=== PATIENT | female | born 1995 | race Caucasian/White ===

== ENCOUNTER 2022-08-10 12:39 | Emergency (ER) | payer OTHER, SELFPAY ==
--- NOTE | ~2022-08-10 | US_ITS ---
EXAMINATION: US PELVIS CLINICAL INFORMATION: Left lower quadrant/pelvic pain COMPARISON: None TECHNIQUE: Ultrasound of the pelvis is performed using both transabdominal and transvaginal transducers along with Doppler. Transvaginal imaging is performed due to inadequate visualization transabdominally. FINDINGS: Uterus: The uterus is anteverted and measures 7.8 x 2.3 x 4.3 cm. The double wall endometrial thickness is 0.4 mm. The uterus is smooth in contour and has normal myometrial echogenicity. No visible fibroid. A nabothian cyst is present in the cervix. Adnexa: Both ovaries are visualized and appear normal. There is normal color flow to the adnexa. There is no ovarian torsion. There is no pelvic ascites or fluid collection. Right ovary measures 3.4 x 1.8 x 1.6 cm. Left ovary measures 3.4 x 1.6 x 1.7 cm. US/US pelvic and transvaginal IMPRESSION: Normal study. A cause for the patient's left lower quadrant pain has not been found.
[2022-08-10 13:11] VITALS: BP 119/69; PULSE 91; RESP 16; TEMP 36.2; O2SAT 100; BMI 29.2
[2022-08-10 13:24] LABS: Appearance Urine Clear; Color Urine Yellow; Glucose Urine UA Negative (Negative); Leukocyte Esterase Urine Negative (Negative); Nitrite Urine Negative (Negative); Specific Gravity - Urine <= 1.005 (1.005-1.025); UPreg QC Valid YES; Urine Blood Negative (Negative); Urine Ketones Negative (Negative); Urine Pregnancy NEGATIVE (NEGATIVE); Urine Protein Negative (Neg-Trace)
[2022-08-10 15:00] LABS: MANUAL DIFF FLAG NO
[2022-08-10 15:02] LABS: Basophils Absolute Auto 0.1 X10*3/uL (0.0-0.2); Basophils Percent Auto 0.8 % (0-2); Eosinophils Absolute Auto 0.2 X10*3/uL (0.0-0.4); Eosinophils Percent Auto 2.2 % (0-4); Hemoglobin 12.8 g/dl (12.0-16.0); Imm Gran Abs Auto 0.02 X10*3/uL (0.00-0.03); Imm Gran Pct Auto 0.3 % (0.0-0.4); Lymphocytes Absolute Auto 1.8 X10*3/uL (1.2-4.9); Lymphocytes Percent Auto 24.6 % (20-40); Mean Corpuscular HGB Conc 32.8 g/dl (31.0-35.0); Mean Corpuscular Hemoglobin 29.5 pg (27.0-33.0); Mean Corpuscular Volume 89.9 fL (80.0-98.0); Mean Platelet Volume 10.8 fL (9.4-12.3); Monocytes Absolute Auto 0.6 X10*3/uL (0.1-1.2); Monocytes Percent Auto 7.7 % (2-11); Neutrophils Absolute Auto 4.7 x10*3/uL (2.0-8.3); Neutrophils Percent Auto 64.4 % (45-73); Platelet Count 276 X10*3/uL (160-400); Red Blood Count 4.34 X10*6/uL (4.20-5.50); Red Cell Distribution Width 13.3 % (11.0-16.0); White Blood Count 7.3 X10*3/uL (4.8-10.8)
[2022-08-10 15:20] LABS: Anion Gap 12 (12-20); Blood Urea Nitrogen 8 mg/dL (9-16); Calcium 9.9 mg/dL (8.4-10.2); Carbon Dioxide 26 mmol/L (22-29); Chloride 107 mmol/L (96-108); Creatinine Clr Calc Pharmacy 131.5; Estimated Glomerular Filt Rate > 60; Glucose Random 85 mg/dL (60-115); Potassium 4.1 mmol/L (3.3-5.1); Sodium 141 mmol/L (135-145)
--- NOTE | 2022-08-10 18:35 | ED_ITS ---
HPI - Female Genitourinary General Chief complaint: Urogenital-Female Stated complaint: L pelvic pain, burning feeling Time Seen by Provider: 08/10/22 18:32 Source: patient Mode of arrival: ambulatory Limitations: no limitations History of Present Illness HPI Narrative: Patient is a 27-year-old female presents to the emergency department for evaluation of left lower pelvic/groin pain. Onset 5 days ago just before her menstrual cycle. Additionally she is reporting vaginal itching and burning, reports a history of yeast infections with this does feel mildly different. She is currently menstruating, is not certain whether she is having any abnormal vaginal discharge. Denies urinary frequency/urgency/hesitancy. Denies constipation or diarrhea. Denies fevers, chills, nausea, vomiting, abdominal pain, flank pain, back pain. She does report a history of ovarian cyst, denies any complications with these in the past. Related Data Allergies Allergy/AdvReac Type Severity Reaction Status Date / Time No Known Allergies Allergy Verified 08/10/22 13:13 Review of Systems Review of Systems: Constitutional : No Weight loss, No Fever, No Chills ENT/Mouth :? No sore throat, No Rhinorrhea Eyes: No Swelling, No Redness Cardiovascular : No Chest Pain, No SOB, No Edema Respiratory : No Cough, No Sputum, No Wheezing Gastrointestinal : No Nausea, no Vomiting, no Diarrhea, no abdominal pain, No Hematochezia, No Melena Genitourinary : No Dysuria, No Urinary Frequency, No Hematuria, No Urgency. Positive pelvic pain. Positive vaginal itching/burning. Musculoskeletal : No joint pain, No Myalgias, No Joint Swelling Skin : No Skin Lesions, No rash Neuro : No Weakness, No Numbness, No Dizziness, No Headache Psych : No Anxiety/Panic, No Depression Heme/Lymph: No Bruising, No Lymphadenopathy Endocrine : No Polyuria, No Polydipsia Yes all other systems are reviewed and are negative [facility] Past Medical History Attestation statement: The following information was validated with the patient. Source: old records reviewed Social History Social History Advance Directives: No Advance Directives Information Provided: No Physical Exam Vital Signs: Vital Signs: Last Vital Signs Temp 97.1 F 08/10/22 13:11 Pulse 91 08/10/22 13:11 Resp 16 08/10/22 13:11 BP 119/69 08/10/22 13:11 Pulse Ox 100 08/10/22 13:11 O2 Del Method 08/10/22 13:11 BMI result Body Mass Index 29.2 Vital signs have been reviewed as normal and appeared to be correct. Blood pressure normal.? Heart rate normal.? Respiration rate normal. Temperature normal.? Oxygen saturation normal. Appearance: Alert.?Oriented to person, place and time. No acute distress.?N ormal affect. Eyes: Pupils equal, round and reactive to light.? ENT: Pharynx normal.?? Neck: Normal inspection.? Neck supple.?? CVS: Heart sounds normal. Normal heart rate and rhythm.? Pulses normal.?? Respiratory: No respiratory distress.? Lung sounds clear to auscultation bilaterally?? Abdomen: Soft and non-tender. Normoactive bowel sounds. Skin: Skin warm and dry.? Normal skin color.? Extremities: No lower extremity edema.? Neuro: Moves all extremities spontaneously. Sensation intact bilaterally. No focal neuro deficits. Ambulates with normal steady gait. Course Course Course Narrative: Patient is a 27-year-old female with a past medical history of ovarian cyst who presents emergency department for evaluation of left sided pelvic/groin pain in addition to vaginal itching/burning. She is currently menstruating. Reports a history of similar pain in the past, was found have ovarian cysts, and states she has had multiple yeast infections in the past. Upon examination she is overall well-appearing. Vital signs are stable. She is afebrile without tachycardia. Abdominal exam is benign. Declines internal pelvic examination. Labs obtained from triage reveal a normal CBC and normal BMP. Urinalysis shows no evidence of infection or microscopic hematuria. Urine test is nega tive. Denies possibility of sexually transmitted infections, however is open to receiving testing. Sent specimen for chlamydia and gonorrhea, as well as bacterial vaginosis panel. Will obtain ultrasound of the pelvic to evaluate for ovarian cyst, fibroid, free fluid within the pelvis. Abdominal examination is benign, does not appear consistent with appendicitis, diverticulitis, nephrolithiasis, pyelonephritis. Reevaluation(s) Reevaluation #1: Ultrasound is unremarkable, no cause for pain is visualized, no evidence ovarian cysts, no torsion, no pelvic fluid. Discussed these findings with patient. Patient declines prophylactic treatment for sexually transmitted infections, she has low suspicion for this. Offered treatment for yeast infection, she would like to wait for the results of testing. She states that she has experienced the symptoms for many years, and testing is always negative. She has tried over -the-counter yeast medications which typically make her symptoms worse the she does not want treatment at this time. Reviewed worrisome signs and symptoms to return back to emergency department for. Advised use of Tylenol, NSAID, ice/heat to the area, outpatient follow-up with her primary care provider/physical security specialist provider. Patient verbalized understanding. She was discharged home in stable condition. Time: 20:36 MDM - Female Genitourinary Medical Records Attestation: I reviewed the patient's medical records. Lab Data Attestation: I reviewed the patient's lab results. Result diagrams: 08/10/22 14:53 08/10/22 14:53 Labs: Lab Results 08/10/22 08/10/22 08/10/22 Range/Units 13:16 13:16 14:53 WBC 7.3 (4.8-10.8) X10*3/uL RBC 4.34 (4.20-5.50) X10*6/uL Hgb 12.8 (12.0-16.0) g/dl Hct 39.0 (37.0-47.0) % MCV 89.9 (80.0-98.0) fL MCH 29.5 (27.0-33.0) pg MCHC 32.8 (31.0-35.0) g/dl RDW 13.3 (11.0-16.0) % Plt Count 276 (160-400) X10*3/uL MPV 10.8 (9.4-12.3) fL Immature Gran % (Auto) 0.3 (0.0-0.4) % Neut % (Auto) 64.4 (45-73) % Lymph % (Auto) 24.6 (20-40) % Bourbon % (Auto) 7.7 (2-11) % Eos % (Auto) 2.2 (0-4) % Baso % (Auto) 0.8 (0-2) % Lymph # (Auto) 1.8 (1.2-4.9) X10*3/uL Bourbon # (Auto) 0.6 (0.1-1.2) X10*3/uL Eos # (Auto) 0.2 (0.0-0.4) X10*3/uL Baso # (Auto) 0.1 (0.0-0.2) X10*3/uL Abs Immat Gran (auto) 0.02 (0.00-0.03) X10*3/uL Absolute Neuts (auto) 4.7 (2.0-8.3) x10*3/uL Absolute Nucleated RBC 0.000 (0.0-0.012) X10*3/uL Nucleated RBC % (auto) 0.0 (0.0-0.2) /100WBC Sodium (135-145) mmol/L Potassium (3.3-5.1) mmol/L Chloride (96-108) mmol/L Carbon Dioxide (22-29) mmol/L Anion Gap (12-20) BUN (9-16) mg/dL Creatinine (0.5-1.4) mg/dL Estim Creat Clear Calc Estimated GFR Random Glucose (60-115) mg/dL Calcium (8.4-10.2) mg/dL Urine Color Yellow Urine Appearance Clear Urine pH 6.0 (5.0-9.0) Ur Specific Agness <= 1.005 (1.005-1.025) Urine Protein Negative (Neg-Trace) mg/dL Urine Glucose (UA) Negative (Negative) mg/dL Urine Ketones Negative (Negative) mg/dL Urine Blood Negative (Negative) Urine Nitrite Negative (Negative) Ur Leukocyte Esterase Negative (Negative) Urine Test NEGATIVE (NEGATIVE) 08/10/22 Range/Units 14:53 WBC (4.8-10.8) X10*3/uL RBC (4.20-5.50) X10*6/uL Hgb (12.0-16.0) g/dl Hct (37.0-47.0) % MCV (80.0-98.0) fL MCH (27.0-33.0) pg MCHC (31.0-35.0) g/dl RDW (11.0-16.0) % Plt Count (160-400) X10*3/uL MPV (9.4-12.3) fL Immature Gran % (Auto) (0.0-0.4) % Neut % (Auto) (45-73) % Lymph % (Auto) (20-40) % Bourbon % (Auto) (2-11) % Eos % (Auto) (0-4) % Baso % (Auto) (0-2) % Lymph # (Auto) (1.2-4.9) X10*3/uL Bourbon # (Auto) (0.1-1.2) X10*3/uL Eos # (Auto) (0.0-0.4) X10*3/uL Baso # (Auto) (0.0-0.2) X10*3/uL Abs Immat Gran (auto) (0.00-0.03) X10*3/uL Absolute Neuts (auto) (2.0-8.3) x10*3/uL Absolute Nucleated RBC (0.0-0.012) X10*3/uL Nucleated RBC % (auto) (0.0-0.2) /100WBC Sodium 141 (135-145) mmol/L Potassium 4.1 (3.3-5.1) mmol/L Chloride 107 (96-108) mmol/L Carbon Dioxide 26 (22-29) mmol/L Anion Gap 12 (12-20) BUN 8 L (9-16) mg/dL Creatinine 0.64 (0.5-1.4) mg/dL Estim Creat Clear Calc 131.5 Estimated GFR > 60 Random Glucose 85 (60-115) mg/dL Calcium 9.9 (8.4-10.2) mg/dL Urine Color Urine Appearance Urine pH (5.0-9.0) Ur Specific Agness (1.005-1.025) Urine Protein (Neg-Trace) mg/dL Urine Glucose (UA) (Negative) mg/dL Urine Ketones (Negative) mg/dL Urine Blood (Negative) Urine Nitrite (Negative) Ur Leukocyte Esterase (Negative) Urine Test (NEGATIVE) Imaging Data pelvic US: Radiologist's impression: FINDINGS: Uterus: The uterus is anteverted and measures 7.8 x 2.3 x 4.3 cm. The double wall endometrial thickness is 0.4 mm.? The uterus is smooth in contour and has normal myometrial echogenicity. ? No visible fibroid. A nabothian cyst is present in the cervix. Adnexa: Both ovaries are visualized and appear normal. There is normal color flow to the adnexa. There is no ovarian torsion.? There is no pelvic ascites or fluid collection. Right ovary measures 3.4 x 1.8 x 1.6 cm. Left ovary measures 3.4 x 1.6 x 1.7 cm. US/US pelvic and transvaginal IMPRESSION: Normal study. A cause for the patient's left lower quadrant pain has not been found. Discharge Plan Discharge Clinical Impression: Vaginitis, Pelvic pain Patient Disposition: Home, Self-Care Instructions: Pelvic Pain in Women (ED), Warm Compress or Soak (ED) Additional Instructions: As discussed, you will receive a phone call from the hospital should any of your testing results as positive. Your ultrasound today was normal. Your blood work as well as urine sample were also normal. It is possible your symptoms may be related to your menstrual cycle as well. You can take ibuprofen 200 mg, 3 tablets (600mg) every 6-8 hours as needed for pain, in addition to Tylenol 500 mg, 2 tablets (1,000mg) every 4-6 hours as needed for pain, but not to exceed 3 doses daily (3,000mg).? Consider the use of ice/heat to the area. Gentle cleansing with warm water, mild month scented soap Hugo genitalia, avoidance of douching. Please follow-up with primary care provider/physical security specialist provider. Return to emergency department with any new or worsening symptoms or concerns. Referrals: Physician,None [Primary Care Provider] - Interventions: ED Discharge Assessment Last Done: 08/10/22 21:27 Discharge Date/Time: 08/10/22 21:28
[2022-08-11 06:13] LABS: CT PCR NOT DETECTED (Not Detect.); NG PCR NOT DETECTED (Not Detect.)
[2022-08-11 12:16] LABS: BV Int Neg Control Negative (Negative); BV Int Pos Control Positive (Positive)
== END 2022-08-10 21:28 | disposition home or self-care (01) ==
PROVIDERS: Nurse Practitioner Family; Emergency Provider Emergency Medicine
DX: R10.2 Pelvic and perineal pain (principal); N76.0 Acute vaginitis; Z79.899 Other long term (current) drug therapy
CPT/HCPCS: 36415; 76830; 76856; 80048; 81003; 81025; 85025; 87480; 87491; 87510; 87591; 87660; 99282; 99284